=== PATIENT | female | born 1995 | race African-American/Black ===

== ENCOUNTER 2017-12-23 00:12 | Emergency (ER) | payer MEDICAID ==
[~2017-12-23] VITALS: Ht 162.6 cm; Wt 49.9 kg
[~2017-12-23 00:12] MED LIST: BACTRIM DS TAB1 EAC1 ORAL; IBUPROFEN600 MG ORAL; METRONIDAZOLE500 MG ORAL; NITROFURANTOIN100 M2 ORAL; NKM; NORCO 5-325 TA1 EACH ORAL; PHENAZOPYRIDIN200 MG ORAL
[2017-12-23 00:52] LABS: APPEARANCE,URINE CLEAR; BILIRUBIN, URINE 1+ (NEGATIVE); GLUCOSE, URINE (UA) NEGATIVE (NEGATIVE); KETONES,URINE 3+ (NEGATIVE); LEUKOCYTE ESTERASE ,URINE 2+ (NEGATIVE); PH,URINE 6 (4.5-8.0); PROTEIN,URINE 1+ (NEGATIVE); UROBILINOGEN,URINE 4 MG/DL (0.0-1.0)
[2017-12-23 01:03] LABS: COLOR,URINE YELLOW; NITRITE,URINE NEGATIVE (NEGATIVE)
[2017-12-23] MEDS ORDERED: DOXYCYCLINE MO100 MG ORAL (01:07)
[2017-12-23] MEDS ORDERED: Lidocaine 1% MPF 10mg/ml 5ml INJ ONE (01:15)
[2017-12-23 02:19] VITALS: BP 110/67
[2017-12-23 02:20] VITALS: BP 110/67
--- NOTE | 2017-12-24 08:17 | Emergency Room Report ---
History of Present Illness General Chief Complaint: Female Urogenital Problems Source: Patient Present Illness HPI Patient is a 22-year-old female who presented after increased urinary frequency and increased abdominal discomfort. Patient gradual onset of symptoms. Patient reported having small amounts of frequent urination. She had not been vomiting. She reports having some vaginal discharge and increased pain with intercourse. Allergies: Coded Allergies: ASPIRIN (Unverified Allergy, Unknown, 07/07/14) Patient History Past Medical History: see triage record Last Menstrual Period: 12/12/17 Now: No : 0 Para: 0 Reviewed Nursing Documentation: PMH: Agreed; PSxH: Agreed Nursing Documentation-PMH Past Medical History: No History, Except For Review of Systems All Other Systems: negative except mentioned in HPI Physical Exam Vital Signs Date Time Temp Pulse Resp B/P (MAP) Pulse Ox O2 Delivery O2 Flow Rate FiO2 12/23/17 00:20 97.9 87 16 108/71 95 Room Air 97.9 General Appearance: well appearing, no apparent distress, alert, GCS 15 Head: normocephalic, atraumatic ENT: hearing grossly normal, normal voice Neck: full range of motion, supple Respiratory: no respiratory distress, speaking full sentences Gastrointestinal: normal inspection, normal bowel sounds, non tender, soft Genitourinary: ext genitalia/vag normal, os closed, other - vaginal discharge, no adnexal tenderness Musculoskeletal: no calf tenderness Neurologic: normal gait Psychiatric: mood/affect normal Skin: no rash Medical Decision Making Diagnostic Impression: Primary Impression: UTI (urinary tract infection) Additional Impression: Vaginal discharge ER Course Patient presented for dysuria. Differential diagnosis included was not limited to appendicitis, urinary tract infection, pelvic inflammatory disease, urethritis, herpes among others. Patient has a benign exam and does not appear to require any further imaging . Urinalysis showed evidence of infection. The patient was empirically treated with antibiotics due to the large amount of discharge consistent with urethritis. The patient is advised to follow up with primary care doctor in 1-2 days for STD testing. Patient is advised to return if any worsening condition or if any changes in status that are concerning. This report is dictated with [employer] orientator software which may occasionally lead to discrepancies related to use of this software. Labs Test 12/23/17 00:40 Urine Color Yellow Urine Appearance Clear Urine pH 6 (4.5-8.0) Urine Specific [place] 1.020 (1.005-1.035) Urine Protein 1+ (NEGATIVE) Urine Glucose (UA) Negative (NEGATIVE) Urine Ketones 3+ (NEGATIVE) Urine Occult Blood Negative (NEGATIVE) Urine Nitrite Negative (NEGATIVE) Urine Bilirubin 1+ (NEGATIVE) Urine Ictotest Positive Urine Urobilinogen 4 MG/DL (0.0-1.0) Urine Leukocyte Esterase 2+ (NEGATIVE) Urine RBC 0-2 /HPF (0 - 2) Urine WBC 15-20 /HPF (0 - 2) Urine Squamous Epithelial Cells Moderate /LPF (NONE/OCC) Urine Bacteria Few /HPF (NONE) Urine Mucus Moderate /LPF (NONE/OCC) Urine HCG, Qualitative Negative (NEGATIVE) Last Vital Signs Date Time Temp Pulse Resp B/P (MAP) Pulse Ox O2 Delivery O2 Flow Rate FiO2 12/23/17 02:20 97.9 71 16 110/67 95 Room Air 97.9 Status: improved Disposition: HOME, SELF-CARE Condition: Stable Scripts Doxycycline Monohydrate* (DOXYCYCLINE MONOHYDRATE*) 100 Mg Capsule 100 MG ORAL Q12H, #14 CAP 0 Refills Prov: Eliceo Barbour 12/23/17 Patient Instructions: Urinary Tract Infection Eliceo Barbour Dec 24, 2017 08:17
== END 2017-12-23 03:02 | disposition home or self-care (01) ==
LOC: EMR 00:40
DX: N39.0 Urinary tract infection, site not specified (principal); N89.8 Other specified noninflammatory disorders of vagina; Z88.6 Allergy status to analgesic agent
CPT/HCPCS: 81003; 81025; 87086; 96372; 99283; J0696

== ENCOUNTER 2018-02-19 09:51 | Emergency (ER) | payer MEDICAID ==
[~2018-02-19] VITALS: Ht 162.6 cm; Wt 49.9 kg
[~2018-02-19 09:51] MED LIST changes: +DOXYCYCLINE MO100 MG ORAL
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
--- NOTE | 2018-02-19 10:58 | Diagnostic Imaging Report ---
EXAM: XR Left Ankle Complete, 3 or More Views CLINICAL HISTORY: TRAUMA TECHNIQUE: Frontal, lateral and oblique views of the left ankle. COMPARISON: No relevant prior studies available. FINDINGS: Bones/joints: No acute fracture. Soft tissues: No radiodense foreign body. IMPRESSION: No acute fracture.
[2018-02-19 11:10] VITALS: BP_SYST 123; BP_SYST 127; BP_DIAS 71; BP_DIAS 76
== END 2018-02-19 11:10 | disposition home or self-care (01) ==
LOC: EMR 10:15
DX: S90.512A Abrasion, left ankle, initial encounter (principal); Z88.6 Allergy status to analgesic agent; V09.9XXA Pedestrian injured in unspecified transport accident, initial encounter; Y92.410 Unspecified street and highway as the place of occurrence of the external cause
CPT/HCPCS: 99283

== ENCOUNTER 2018-07-29 17:02 | Emergency (ER) | payer MEDICAID ==
[~2018-07-29] VITALS: Ht 162.6 cm; Wt 49.9 kg
[2018-07-29 17:10] VITALS: BP 123/77
[2018-07-29 17:59] LABS: APPEARANCE,URINE CLEAR; BILIRUBIN, URINE NEGATIVE (NEGATIVE); COLOR,URINE PALE YELLOW; GLUCOSE, URINE (UA) NEGATIVE (NEGATIVE); KETONES,URINE NEGATIVE (NEGATIVE); LEUKOCYTE ESTERASE ,URINE 3+ (NEGATIVE); NITRITE,URINE NEGATIVE (NEGATIVE); PH,URINE 5 (4.5-8.0); PROTEIN,URINE NEGATIVE (NEGATIVE); UROBILINOGEN,URINE NORMAL MG/DL (0.0-1.0)
[2018-07-29] MEDS ORDERED: Cyclobenzaprine 10mg Tab ORAL ONE (18:15)
[2018-07-29] MEDS ORDERED: Ketorolac 30mg Inj IM ONE (18:15)
[2018-07-29] MEDS ORDERED: Azithromycin 250mg tab ORAL ONE (18:15)
[2018-07-29] MEDS ORDERED: metroNIDAZOLE 500mg tab ORAL ONE (18:15)
[2018-07-29] MEDS ORDERED: Lidocaine 1% MPF 10mg/ml 5ml INJ ONE (18:15)
[2018-07-29] MEDS ORDERED: CYCLOBENZAPRINE10 MG ORAL (19:16)
[2018-07-29] MEDS ORDERED: IBUPROFEN600 MG ORAL (19:16)
[2018-07-29 19:21] VITALS: BP 118/71
--- NOTE | 2018-07-29 22:08 | Emergency Room Report ---
History of Present Illness General Chief Complaint: Back Pain-No Injury Source: Patient Present Illness HPI The patient is a 23-year-old female presenting for right-sided back pain for the past week. She states that this occurred after twisting a certain way. She has used heat therapy at home and Motrin which slightly helped. Pain is an 8 out of 10 dull ache. Does not radiate. Worse with movement she denies previous injury to this area. She denies other symptoms including nausea, vomiting, fever, chills, abdominal pain, dysuria, vaginal discharge, rash. Allergies: Coded Allergies: ACETAMINOPHEN (Verified Allergy, Unknown, Nausea, 02/19/18) ASPIRIN (Unverified Allergy, Unknown, 07/07/14) HYDROCODONE (Verified Allergy, Unknown, Nausea, 02/19/18) Patient History Past Medical History: see triage record Pertinent Family History: none Reviewed Nursing Documentation: PMH: Agreed; PSxH: Agreed Nursing Documentation-PMH Past Medical History: No Stated History Review of Systems All Other Systems: negative except mentioned in HPI Physical Exam Vital Signs Date Time Temp Pulse Resp B/P (MAP) Pulse Ox O2 Delivery O2 Flow Rate FiO2 07/29/18 17:10 98.2 89 14 123/77 99 Room Air Sp02 EP Interpretation: reviewed, normal General Appearance: no apparent distress, alert, GCS 15, non-toxic Head: normocephalic, atraumatic Respiratory: chest non-tender, lungs clear, normal breath sounds, speaking full sentences Cardiovascular #1: regular rate, rhythm, no edema Genitourinary: normal inspection, no CVA tenderness Musculoskeletal: back normal, gait/station normal, normal range of motion, tender - TTP over the R paraspinal muscles Neurologic: alert, oriented x3, responsive, motor strength/tone normal, sensory intact, speech normal Psychiatric: judgement/insight normal, memory normal, mood/affect normal, no suicidal/homicidal ideation Skin: normal color, no rash, warm/dry, well hydrated Medical Decision Making PA Attestation Dr. Barbour is my supervising physician. Patient management was discussed with my supervising physician Diagnostic Impression: Primary Impression: Trichimoniasis Additional Impression: Low back strain Qualified Codes: S39.012A - Strain of muscle, fascia and tendon of lower back , initial encounter ER Course The patient is a 23-year-old female presenting for right-sided back pain for the past week. Ddx considered include but not limited to sprain/strain, contusion, pyelonephritis, UTI, among others PE: afebrile. NAD TTP over the R paraspinal lumbar muscles. Full AROM intact. Normal gait. No rash. Abd soft and non tender UA shows + trich She is treated with flagyl. She is also treated for G&C as precaution. SHe is given muscle relaxer and pain meds and needs to F/U with PCP. ER precautions given Laboratory Tests Test 07/29/18 17:39 Urine Color Pale yellow Urine Appearance Clear Urine pH 5 (4.5-8.0) Urine Specific [place] 1.015 (1.005-1.035) Urine Protein Negative (NEGATIVE) Urine Glucose (UA) Negative (NEGATIVE) Urine Ketones Negative (NEGATIVE) Urine Blood 1+ (NEGATIVE) H Urine Nitrite Negative (NEGATIVE) Urine Bilirubin Negative (NEGATIVE) Urine Urobilinogen Normal MG/DL (0.0-1.0) Urine Leukocyte Esterase 3+ (NEGATIVE) H Urine RBC 2-4 /HPF (0 - 2) H Urine WBC 5-10 /HPF (0 - 2) H Urine Squamous Epithelial Cells Few /LPF (NONE/OCC) Urine Bacteria Few /HPF (NONE) Urine Trichomonas Few /HPF (NONE) H Urine HCG, Qualitative Negative (NEGATIVE) Lab Results Impression 5-10 WBCS, + trich. Neg preg Last Vital Signs Date Time Temp Pulse Resp B/P (MAP) Pulse Ox O2 Delivery O2 Flow Rate FiO2 07/29/18 19:21 98.2 88 14 118/71 99 Room Air Status: improved Disposition: HOME, SELF-CARE Condition: Improved Scripts Ibuprofen* (MOTRIN*) 600 Mg Tablet 600 MG ORAL Q8H PRN for For Pain, #30 TAB 0 Refills Prov: TERZIAN,AIDE P.A. 07/29/18 Cyclobenzaprine Hcl* (FLEXERIL*) 10 Mg Tablet 10 MG ORAL THREE TIMES A DAY, #20 TAB Prov: TERZIAN,AIDE P.A. 07/29/18 Patient Instructions: Back Pain, Adult Additional Instructions: I discussed my findings with the patient. All questions and concerns have been answered. Treatment and medication compliance have been addressed. I advised the patient that they need to follow up with PMD in 3-5 days. Return to ED if symptoms worsen, new symptoms arise, or if needed for any reason. Patient verbalized understanding of discharge instructions. AIDE BENAVIDEZ Jul 29, 2018 22:08
== END 2018-07-29 19:23 | disposition home or self-care (01) ==
LOC: EMR 17:48
DX: S39.012A Strain of muscle, fascia and tendon of lower back, initial encounter (principal); H02.059 Trichiasis without entropion unspecified eye, unspecified eyelid; F17.200 Nicotine dependence, unspecified, uncomplicated; Z88.5 Allergy status to narcotic agent; Z88.6 Allergy status to analgesic agent; X58.XXXA Exposure to other specified factors, initial encounter; Y92.89 Other specified places as the place of occurrence of the external cause
CPT/HCPCS: 81003; 81025; 96372; 99283; J0696; J1885; Q0144